=== PATIENT | male | born 1980 | race African-American/Black ===

== ENCOUNTER 2020-08-09 23:34 | Emergency (ER) | payer SELFPAY ==
[~2020-08-09] VITALS: Ht 165.1 cm; Wt 60.8 kg
[2020-08-09 23:57] VITALS: BP 137/82
--- NOTE | 2020-08-09 23:59 | NUR ---
TO LOBBY A/W BED AMBULATORY
--- NOTE | 2020-08-10 00:10 | NUR ---
SEEN AND EXAMINED BY CHRISTINE WITH ORDERS, CARRIED OUT
[2020-08-10] MEDS ORDERED: KETOROLAC 60 MG/2 ML VIAL IM ONE (00:15)
--- NOTE | 2020-08-10 00:40 | NUR ---
MEDICATED PER [facility] ORDER, TOLERATED WELL.
[2020-08-10 03:15] VITALS: BP 137/82
--- NOTE | 2020-08-10 03:15 | NUR ---
Patient discharged with v/s stable. Written and verbal after care instructions given and explained. Patient verbalized understanding. Ambulatory with steady gait. All questions addressed prior to discharge. Advised to follow up with PMD.
== END 2020-08-10 03:15 | disposition home or self-care (01) ==
LOC: MED 23:34
DX: R07.89 Other chest pain (principal); Z20.828 Contact with and (suspected) exposure to other viral communicable diseases
CPT/HCPCS: 71101; 87426; 96372; 99284; J1885; 93005